=== PATIENT | male | born 2000 | race Asian ===

== ENCOUNTER 2021-07-03 11:35 | Emergency (ER) | payer OTHER, SELFPAY ==
[2021-07-03 11:40] VITALS: BP 108/67; PULSE 113; RESP 16; TEMP 37.7; O2SAT 95
--- NOTE | 2021-07-03 12:12 | ED.URI ---
HPI - URI/Sore Throat General Chief Complaint: Upper Respiratory Infection Stated Complaint: Itchy Throat, congestion, coughing, fever, chills Source: patient Mode of arrival: ambulatory Limitations: no limitations History of Present Illness HPI Narrative: Patient is a 21-year-old male who presents complaining of sore throat, cough, chills, body aches x3 to 4 days. He reports vaccinated x1 with Pfizer approximately 3 weeks ago. He denies known exposure to Covid. He denies taking [id number] medications prior to arrival. Patient appears mildly ill and is over dressed for the weather. Related Data Home Medications Medication Instructions Recorded Confirmed No Home Medications 07/03/21 07/03/21 Allergies Allergy/AdvReac Type Severity Reaction Status Date / Time No Known Allergies Allergy Verified 07/03/21 11:51 Review of Systems Review of Systems: CONSTITUTIONAL: Reports fever chills and body aches EYES: Denies visual changes, redness, or discharge. ENT: Reports rhinorrhea, congestion, and sore throat. CARDIOVASCULAR: Denies chest pain, palpitations, or edema. RESPIRATORY: Reports cough, denies dyspnea GASTROINTESTINAL: Denies abdominal pain, nausea, vomiting, or diarrhea. GENITOURINARY: Denies dysuria or hematuria. SKIN: Denies rash or itching. MUSCULOSKELETAL: Denies back pain, joint pain, or myalgia. NEUROLOGIC: Denies headache, numbness, dizziness, or weakness. PSYCHIATRIC: Denies anxiety or depression. [facility] Past Medical History Medical History No significant past medical history Surgical History Surgical History No significant past surgical history Family History Family History (Updated 07/03/21 @ 12:18 by ROME Limon) Other No significant family history Social History Social History (Updated 07/03/21 @ 12:19 by ROME Limon) Smoking status: Never smoker Alcohol intake: never Substance use: never Occupation/Education: occupation Gender identity (if verbalized by the patient): Male Comments At the time of signature, I have reviewed and agree with nursing past medical, surgical, social, and family history unless otherwise noted. Please see nursing chart for further information. There is no relevant family history pertinent to the presenting complaint. Exam Narrative: GENERAL: Well-appearing, well-nourished, and in no acute distress. HEAD: Normocephalic, atraumatic. EYES: EOMI. No redness or drainage. Conjunctiva are normal. ENT: Mucous membranes pink and moist. Throat with mild erythema, no edema CHEST: No respiratory distress. HEART: Mildly tachycardic, normal rhythm. EXTREMITIES: Normal range of motion. No edema. SKIN: Warm, dry, no rash. NEURO: No focal deficits. Alert and oriented x3. Gait steady. PSYCH: Normal affect. No signs of depression or anxiety. Course Vital Signs Vital signs: Vital Signs Temperature 37.7 C H 07/03/21 11:40 Pulse Rate 113 H 07/03/21 11:40 Respiratory Rate 16 07/03/21 11:40 Blood Pressure 108/67 07/03/21 11:40 Pulse Oximetry 95 07/03/21 11:40 Temperature 37.7 C H 07/03/21 11:40 Pulse Rate 113 H 07/03/21 11:40 Respiratory Rate 16 07/03/21 11:40 Blood Pressure 108/67 07/03/21 11:40 Pulse Oximetry 95 07/03/21 11:40 Reviewed. MDM - URI/Sore Throat MDM Narrative Medical decision making narrative: Patient's rapid strep and influenza are negative at this time. Covid PCR sent. Discussed [id number] treatments for fever and body aches. Patient aware of quarantine. Patient agrees with plan of care, Differential Diagnosis Differential diagnosis: Likely upper respiratory infection, sinusitis, viral infection, bronchitis, pharyngitis and other (Strep throat, Covid) Lab Data Labs: Influenza A Screen Negative Ref
[2021-07-04 15:30] LABS: SARS-CoV-2 RNA PCR Negative
== END 2021-07-03 12:17 | disposition home or self-care (01) ==
PROVIDERS: Emergency Provider Nurse Practitioner; PCP Emergency Medicine
DX: J06.9 Acute upper respiratory infection, unspecified (principal); Z20.822 Contact with and (suspected) exposure to COVID-19
CPT/HCPCS: 87081; 87804; 87880; 99213; C9803; G0463; U0003; U0005